=== PATIENT | male | born 1985 | race Caucasian/White ===

== ENCOUNTER 2021-03-14 09:07 | Emergency (ER) | payer SELFPAY ==
[2021-03-14 10:14] LABS: Absolute Lymphocytes (CBC) 2.2 K/uL (0.7-4.9); Basophils % 0.5 % (0-1.3); Hematocrit 47.2 % (39.6-49.0); Lymphocytes % 29.7 % (15.3-44.8); MPV 7.8 fL (7.6-11.3); Protime INR 0.98; RBC Red Blood Cell Count 5.62 M/uL (4.33-5.43)
--- NOTE | 2021-03-14 10:28 | RAD REPORT ---
EXAM DESCRIPTION: CT - Head Brain Wo Cont - 03/14/2021 9:59 am CLINICAL HISTORY: SYNCOPE Headache, drowsiness COMPARISON: No comparisons TECHNIQUE: All CT scans are performed using dose optimization technique as appropriate and may inclu de automated exposure control or mA/KV adjustment according to patient size. FINDINGS: No intracranial hemorrhage, hydrocephalus or extra-axial fluid collection.No areas of brai n edema or evidence of midline shift. The paranasal sinuses and mastoids are clear. The calvarium is intact. IMPRESSION: No acute intracranial abnormality.
--- NOTE | 2021-03-14 10:58 | RAD REPORT ---
EXAM DESCRIPTION: RAD - Chest Single View - 03/14/2021 9:57 am CLINICAL HISTORY: MALAISE Chest pain. COMPARISON: No comparisons FINDINGS: Portable technique limits examination quality. The lungs are grossly clear. The heart is normal in size. No displaced fractures. IMPRESSION: No acute intrathoracic process suspected.
[2021-03-14 11:06] LABS: ALT/SGPT 25 U/L (12-78); AST/SGOT 18 U/L (15-37); Albumin 3.8 g/dL (3.4-5.0); BUN Blood Urea Nitrogen 20 mg/dL (7-18); Bicarbonate 29 mmol/L (21-32); Bilirubin Direct 0.1 mg/dL (0-0.2); Glucose Level 115 mg/dL (74-106); Potassium 3.8 mmol/L (3.5-5.1); Sodium Level 143 mmol/L (136-145)
[2021-03-14 11:10] LABS: Alkaline Phosphatase 70 U/L (45-117); Bilirubin Total 0.6 mg/dL (0.2-1.0); Protein, Total 7.8 g/dL (6.4-8.2); Troponin (Emerg Dept Use Only) < 0.02 ng/mL (0.0-0.045)
--- NOTE | 2021-03-14 11:21 | ER ---
Nurse's Notes [facility] Name: Roldan Casanova Age: 35 yrs Sex: Male : 1985 Arrival Date: 03/14/2021 Time: 09:10 Bed 6 Private MD: Augustin Church E Diagnosis: Syncope Near Presentation: 03/14 09:19 Chief complaint: Patient states: "I feel dizzy, nauseous, and weak since this morning". aa5 Denies pain. Coronavirus screen: fatigue. Ebola Screen: No symptoms or risks identified at this time. Initial Sepsis Screen: Does the patient meet any 2 criteria? No. Patient's initial sepsis screen is negative. Does the patient have a suspected source of infection? No. Patient's initial sepsis screen is negative. Risk Assessment: Do you want to hurt yourself or someone else? Patient reports no desire to harm self or others. Onset of symptoms was February 2021. 09:19 Method Of Arrival: Wheelchair aa 09:19 Acuity: CARROLL 3 aa5 Triage Assessment: 09:20 General: Appears distressed, uncomfortable, obese, Behavior is cooperative, appropriate bp for age, anxious. Pain: Denies pain. EENT: No deficits noted. Neuro: Level of Consciousness is awake, alert, obeys commands, Oriented to Appropriate for age Moves all extremities. Full function Speech is normal, Reports dizziness, weakness. Cardiovascular: No deficits noted. Respiratory: No deficits noted. Airway is patent Respiratory effort is even, unlabored. GI: No signs and/or symptoms were reported involving the gastrointestinal system. : No signs and/or symptoms were reported regarding the genitourinary system. Derm: No deficits noted. Musculoskeletal: No deficits noted. Historical: - Allergies: 09:20 No Known Allergies; aa5 - PMHx: 09:20 Hypertensive disorder; Diabetes mellitus; aa5 - PSHx: 09:20 foot; aa5 - Immunization history:: Client reports having NOT received the Covid vaccine. - Social history:: Smoking status: Patient denies any tobacco usage or history of. Screenin:20 Abuse screen: Denies threats or abuse. Denies injuries from another. Nutritional bp screening: No deficits noted. Tuberculosis screening: No symptoms or risk factors identified. Fall Risk None identified. Assessment: 10:00 Reassessment: PT REFUSING PIV. BLOOD DRAW BY PHLEBOTOMY. bp 10:56 Reassessment: ALL CURRENT ORDERS COMPLETED. RESULTS PENDING. bp 11:24 Reassessment: PT D/C HOME AMBULATORY WITH FAMILY, DX WITH NEAR-SYNCOPE. bp Vital Signs: 09:19 BP 130 / 81; Pulse 86; Resp 18 S; Temp 98.0(TE); Pulse Ox 99% on R/A; Weight 136.08 kg aa5 (R); Height 6 ft. 5 in. (195.58 cm) (R); Pain 0/10; 10:50 BP 117 / 77; Pulse 80; Resp 17; Pulse Ox 99% ; bp 11:24 BP 117 / 76; Pulse 80; Resp 16; Temp 98; Pulse Ox 99% ; bp 09:19 Body Mass Index 35.57 (136.08 kg, 195.58 cm) aa5 ED Course: 09:10 Patient arrived in ED. am2 09:10 Augustin Church MD is Private Physician. am2 09:19 Arm band placed on. aa5 09:20 Triage completed. aa5 09:20 Patient has correct armband on for positive identification. Bed in low position. Call bp light in reach. Side rails up X2. Adult w/ patient. 09:21 Stevie Sykes, RN is Primary Nurse. bp 09:22 Gregor Blanchard MD is Attending Physician. sp3 09:50 EKG done, by ED staff, reviewed by Gregor Blanchard MD. em1 09:57 XRAY Chest (1 view) In Process Unspecified. EDMS 09:59 CT Head Brain wo Cont In Process Unspecified. EDMS 11:24 No provider procedures requiring assistance completed. Patient did not have IV access bp during this emergency room visit. Administered Medications: No medications were administered Outcome: 11:20 Discharge ordered by . sp3 11:24 Discharged to home ambulatory, with family. bp 11:24 Condition: stable 11:24 Discharge instructions given to patient, Instructed on discharge instructions, follow up and referral plans. Demonstrated understanding of instructions, follow-up care. 11:25 Patient left the ED. bp Signatures: Dispatcher [employer] EDMS Vishal Hardy em1 Kimberly Storey, RN RN aa5 Yoon Torres am2 Stevie Sykes, SURAJ RN bp Blanchard, Setul, MD MD sp3
--- NOTE | 2021-03-14 11:21 | EDPHYS ---
Physician Documentation [facility] Name: Roldan Casanova Age: 35 yrs Sex: Male : 1985 Arrival Date: 03/14/2021 Time: 09:10 Bed 6 Private MD: Augustin Church E ED Physician rGegor Blanchard HPI: 03/14 09:43 This 35 yrs old Male presents to ER via Wheelchair with complaints of sp3 Dizziness, Blood Pressure Problem. 09:43 35-year-old male with history of hypertension and diabetes presents with chief sp3 complaint near syncope and nausea which are now resolved. Patient was at work as a repairer handtools and developed sudden onset of nausea and lightheadedness and pallor as witnessed by coworkers. He was like picked him up and took him to his PCPs office who told him to present to the ED for further work-up. Patient had one episode of emesis while at the PCPs office which was nonbloody and nonbilious. Patient denies headache, neck pain, chest pain, shortness of breath, abdominal pain, current nausea, current emesis, diarrhea, neuro symptoms, skin rash, sick contacts, trauma, travel history, any other ROS at this time. Remainder of ROS negative. Patient currently "feels back to normal".. Historical: - Allergies: 09:20 No Known Allergies; aa5 - PMHx: 09:20 Hypertensive disorder; Diabetes mellitus; aa5 - PSHx: 09:20 foot; aa5 - Immunization history:: Client reports having NOT received the Covid vaccine. - Social history:: Smoking status: Patient denies any tobacco usage or history of. ROS: 09:45 Constitutional: Negative for fever, chills, and weight loss, Eyes: Negative for injury, sp3 pain, redness, and discharge, ENT: Negative for injury, pain, and discharge, Neck: Negative for injury, pain, and swelling, Cardiovascular: Negative for chest pain, palpitations, and edema, Respiratory: Negative for shortness of breath, cough, wheezing, and pleuritic chest pain, Abdomen/GI: Negative for abdominal pain, nausea, vomiting, diarrhea, and constipation, Back: Negative for injury and pain, MS/Extremity: Negative for injury and deformity, Skin: Negative for injury, rash, and discoloration, Neuro: Negative for headache, weakness, numbness, tingling, and seizure, Psych: Negative for depression, anxiety, suicide ideation, homicidal ideation, and hallucinations, Allergy/Immunology: Negative for hives, rash, and allergies, Endocrine: Negative for neck swelling, polydipsia, polyuria, polyphagia, and marked weight changes, Hematologic/Lymphatic: Negative for swollen nodes, abnormal bleeding, and unusual bruising. 09:45 All other systems are negative. Exam: 09:45 Constitutional: This is a well developed, well nourished patient who is awake, alert, sp3 and in no acute distress. Head/Face: Normocephalic, atraumatic. Eyes: Pupils equal round and reactive to light, extra-ocular motions intact. Lids and lashes normal. Conjunctiva and sclera are non-icteric and not injected. Cornea within normal limits. Periorbital areas with no swelling, redness, or edema. ENT: Nares patent. No nasal discharge, no septal abnormalities noted. External auditory canals are clear. Oropharynx with no redness, swelling, or masses, exudates, or evidence of obstruction, uvula midline. Mucous membranes moist. Neck: Trachea midline, no thyromegaly or masses palpated, and no cervical lymphadenopathy. Supple, full range of motion without nuchal rigidity, or vertebral point tenderness. No Meningismus. Chest/axilla: Normal chest wall appearance and motion. Nontender with no deformity. No lesions are appreciated. Cardiovascular: Regular rate and rhythm with a normal S1 and S2. No gallops, murmurs, or rubs. Normal PMI, no JVD. No pulse deficits. Respiratory: Lungs have equal breath sounds bilaterally, clear to auscultation and percussion. No rales, rhonchi or wheezes noted. No increased work of breathing, no retractions or nasal flaring. Abdomen/GI: Soft, non-tender, with normal bowel sounds. No distension or tympany. No guarding or rebound. No evidence of tenderness throughout. Back: No spinal tenderness. No costovertebral tenderness. Full range of motion. Skin: Warm, dry with normal turgor. Normal color with no rashes, no lesions, and no evidence of cellulitis. MS/ Extremity: Pulses equal, no cyanosis. Neurovascular intact. Full, normal range of motion. Neuro: Awake and alert, GCS 15, oriented to person, place, time, and situation. Cranial nerves II-XII grossly intact. Motor strength 5/5 in all extremities. Sensory grossly intact. Cerebellar exam normal. Normal gait. Psych: Awake, alert, with orientation to person, place and time. Behavior, mood, and affect are within normal limits. 09:45 ECG was reviewed by the Attending Physician. EKG demonstrates 82 bpm and a normal sinus rhythm with normal intervals, normal axis, normal QRS, and normal ST/T-segment with no evidence of ischemia. Vital Signs: 09:19 BP 130 / 81; Pulse 86; Resp 18 S; Temp 98.0(TE); Pulse Ox 99% on R/A; Weight 136.08 kg aa5 (R); Height 6 ft. 5 in. (195.58 cm) (R); Pain 0/10; 10:50 BP 117 / 77; Pulse 80; Resp 17; Pulse Ox 99% ; bp 11:24 BP 117 / 76; Pulse 80; Resp 16; Temp 98; Pulse Ox 99% ; bp 09:19 Body Mass Index 35.57 (136.08 kg, 195.58 cm) aa5 MDM: 09:23 Patient medically screened. sp3 09:46 Data reviewed: vital signs, nurses notes. ED course: 35-year-old male with near syncope sp3 likely vasovagal episode. Patient is not clinically dehydrated. At this time I do not believe patient has acute coronary syndrome, pulmonary embolism, thoracic aortic dissection, metabolic derangement, sepsis, or any other critical findings at this time. If work-up is negative which includes laboratory values, EKG, and CT scan of the head, will discharge patient home.. 11:19 ED course: Was negative including laboratory values, CT scan, chest x-ray. Patient sp3 feels fine and has no further complaints. He also has an appointment with his PCP. Will discharge patient home at this time.. 03/14 09:23 Order name: Basic Metabolic Panel sp3 03/14 09:23 Order name: CBC with Diff; Complete Time: 11:18 sp3 03/14 09:23 Order name: LFT's sp3 03/14 09:23 Order name: Magnesium sp3 03/14 09:23 Order name: NT PRO-BNP sp3 03/14 09:23 Order name: PT-INR; Complete Time: 11:18 sp3 03/14 09:23 Order name: Troponin (emerg Dept Use Only) sp3 03/14 09:23 Order name: XRAY Chest (1 view); Complete Time: 11:18 sp3 03/14 09:23 Order name: EKG; Complete Time: 09:24 sp3 03/14 09:23 Order name: Cardiac monitoring; Complete Time: 10:06 sp3 03/14 09:23 Order name: EKG - Nurse/Tech; Complete Time: 09:50 sp3 03/14 09:37 Order name: Glucose, Ancillary Testing; Complete Time: 09:47 EDMS 03/14 09:47 Order name: CT Head Brain wo Cont; Complete Time: 11:18 sp3 03/14 09:23 Order name: Labs collected and sent; Complete Time: 10:06 sp3 03/14 09:23 Order name: O2 Per Protocol; Complete Time: 09:39 sp3 03/14 09:23 Order name: O2 Sat Monitoring; Complete Time: 09:39 sp3 Administered Medications: No medications were administered Disposition Summary: 03/14/21 11:20 Discharge Ordered Location: Home sp3 Condition: Stable sp3 Diagnosis - Syncope Near sp3 Followup: sp3 - With: Private Physician - When: - Reason: Recheck today's complaints Discharge Instructions: - Discharge Summary Sheet sp3 - Near-Syncope sp3 Forms: - Medication Reconciliation Form sp3 - Thank You Letter sp3 - Antibiotic Education sp3 - Prescription Opioid Use sp3 Signatures: Dispatcher [employer] EDKimberly Rascon RN RN aa5 Gregor Blanchard MD MD sp3 Corrections: (The following items were deleted from the chart) 09:39 09:23 IV Saline Lock ordered. sp3 bp
[2021-03-14 11:22] LABS: NT PRO-BNP 15 pg/mL (<125)
[2021-03-14 11:52] VITALS: O2SAT 99
[2021-03-14 11:56] VITALS: BP 117/76; TEMP 98
== END 2021-03-14 11:25 | disposition home or self-care (01) ==
LOC: ER 09:07
DX: R55 Syncope and collapse (principal)
CPT/HCPCS: 36415; 70450; 71045; 80048; 80076; 82947; 83735; 83880; 84484; 85025; 85610; 93005; 99283